=== PATIENT | female | born 1985 | race Two or more races ===

== ENCOUNTER 2017-09-13 11:39 | Inpatient (IN) | payer MEDICAID ==
[~2017-09-13] VITALS: Ht 165.1 cm; Wt 59.0 kg
[2017-09-13 11:50] VITALS: BP 11/73
[2017-09-13] MEDS ORDERED: Morphine Sulfate 2mg/ml Inj IVP ONE ×2 (12:15→13:30)
[2017-09-13 12:16] LABS: APPEARANCE,URINE CLEAR; KETONES,URINE 3+ (NEGATIVE); LEUKOCYTE ESTERASE ,URINE NEGATIVE (NEGATIVE); NITRITE,URINE NEGATIVE (NEGATIVE); PH,URINE 8 (4.5-8.0); PROTEIN,URINE NEGATIVE (NEGATIVE); UROBILINOGEN,URINE NORMAL MG/DL (0.0-1.0)
[2017-09-13 12:33] LABS: MEAN CORPUSCULAR HEMOGLOBIN 32.1 PG (27.0-31.0); MEAN CORPUSCULAR HGB CONC 33.7 G/DL (32.0-36.0); MEAN CORPUSCULAR VOLUME 95 FL (80-99); MEAN PLATELET VOLUME 6.8 FL (6.5-10.1); PLATELET COUNT 246 K/UL (150-450); RED BLOOD COUNT 3.96 M/UL (4.20-5.40); RED CELL DISTRIBUTION WIDTH 11.6 % (11.6-14.8); WHITE BLOOD COUNT 15.1 K/UL (4.8-10.8)
[2017-09-13 12:58] LABS: ALANINE AMINOTRANSFERASE 14 U/L (12-78); ALBUMIN/GLOBULIN RATIO 1.1 (1.0-2.7); ANION GAP 14 mmol/L (5-15); ASPARTATE AMINO TRANSFERASE 14 U/L (15-37); CALCIUM 9.3 MG/DL (8.5-10.1); CARBON DIOXIDE 22 MMOL/L (21-32); CHLORIDE 100 MMOL/L (98-107); CREATININE 0.9 MG/DL (0.55-1.30); GLOMERULAR FILTRATION RATE > 60 mL/min (>60); POTASSIUM 3.3 MMOL/L (3.5-5.1); SODIUM 136 MMOL/L (136-145); TOTAL PROTEIN 7.8 G/DL (6.4-8.2)
[2017-09-13 13:16] LABS: BAND NEUTROPHILS % (MANUAL) 0 % (0-8); BASOPHILS % (MANUAL) 0 % (0-2); EOSINOPHILS % (MANUAL) 0 % (0-3); LYMPHOCYTES % (MANUAL) 3 % (20-45); NEUTROPHILS % (MANUAL) 94 % (45-75); PLATELET ESTIMATE ADEQUATE; PLATELET MORPHOLOGY NORMAL; TOTAL CELLS COUNTED 100
[2017-09-13] MEDS ORDERED: Ketorolac 30mg Inj IV ONE (13:30)
[2017-09-13] MEDS ORDERED: Levofloxacin 500mg tab ORAL ONE (13:45)
--- NOTE | 2017-09-13 14:31 | Emergency Room Report ---
History of Present Illness General Chief Complaint: Abdominal Pain Source: Patient (Viviane Albert M.D.) Present Illness HPI 31-year-old female history of pyelonephritis presenting with 2 days of right- sided flank pain. Sharp, intermittent, associated with nausea no vomiting. Associate with seizure fever and chills. No dysuria or hematuria No renal stones Monogamous with one partner, no abnormal vaginal discharge, noticed. Anemia, no abnormal vaginal bleeding (Viviane Albert M.D.) Allergies: Coded Allergies: CEPHALEXIN (Verified Allergy, Mild, 09/13/17) Patient History Past Medical History: see triage record Past Surgical History: none Pertinent Family History: none Last Menstrual Period: 09/05/17 Reviewed Nursing Documentation: PMH: Agreed, PSxH: Agreed (Viviane Albert M.D. ) Nursing Documentation-PMH Past Medical History: No Stated History (Viviane Albert M.D.) Review of Systems All Other Systems: negative except mentioned in HPI (Viviane Albert M.D.) Physical Exam Vital Signs Date Time Temp Pulse Resp B/P (MAP) Pulse Ox O2 Delivery O2 Flow Rate FiO2 09/13/17 11:46 102.7 106 18 11/73 99 Room Air (Viviane Albert M.D.) Medical Decision Making Diagnostic Impression: Primary Impression: Pyelonephritis Additional Impression: Intractable pain ER Course 31-year-old female with right-sided flank pain DDX: nephrolithiasis VS infected stone vs. pyelonephritis vs. UTI Plan: Labs - cbc, bmp, ua, ucx CT abdo pelvis ER course: Patient has been monitored during ED stay, HD stable Patient has required multiple rounds of pain medication CT of the pelvis showing focal right-sided nephritis Levaquin given as patient is allergic to cephalosporins Disposition: Patient is to be admitted to [facility] D/W hospitalist Patient was signed out to Dr Gamble, who has accepted patient for admission. Please note that this Emergency Department Report was dictated using [employer] technology software, occasionally this can lead to erroneous entry secondary to interpretation by the dictation equipment. Laboratory Tests Test 09/13/17 11:45 09/13/17 12:12 09/13/17 19:35 09/14/17 06:57 Urine Color Pale yellow Pale yellow Urine Appearance Clear Clear Urine pH 8 (4.5-8.0) 8 (4.5-8.0) Urine Specific [place] 1.010 (1.005-1.035) 1.010 (1.005-1.035) Urine Protein Negative (NEGATIVE) Negative (NEGATIVE) Urine Glucose (UA) Negative (NEGATIVE) Negative (NEGATIVE) Urine Ketones 3+ (NEGATIVE) H 3+ (NEGATIVE) H Urine Occult Blood Negative (NEGATIVE) 2+ (NEGATIVE) H Urine Nitrite Negative (NEGATIVE) Negative (NEGATIVE) Urine Bilirubin Negative (NEGATIVE) Negative (NEGATIVE) Urine Urobilinogen Normal MG/DL (0.0-1.0) Normal MG/DL (0.0-1.0) Urine Leukocyte Esterase Negative (NEGATIVE) 3+ (NEGATIVE) H Urine HCG, Qualitative Negative White Blood Count 15.1 K/UL (4.8-10.8) H 14.7 K/UL (4.8-10.8) H Red Blood Count 3.96 M/UL (4.20-5.40) L 3.52 M/UL (4.20-5.40) L Hemoglobin 12.7 G/DL (12.0-16.0) 11.8 G/DL (12.0-16.0) L Hematocrit 37.8 % (37.0-47.0) 33.8 % (37.0-47.0) L Mean Corpuscular Volume 95 FL (80-99) 96 FL (80-99) Mean Corpuscular Hemoglobin 32.1 PG (27.0-31.0) H 33.4 PG (27.0-31.0) H Mean Corpuscular Hemoglobin Concent 33.7 G/DL (32.0-36.0) 34.8 G/DL (32.0-36.0) Red Cell Distribution Width 11.6 % (11.6-14.8) 11.6 % (11.6-14.8) Platelet Count 246 K/UL (150-450) 190 K/UL (150-450) Mean Platelet Volume 6.8 FL (6.5-10.1) 7.2 FL (6.5-10.1) Neutrophils (%) (Auto) % (45.0-75.0) % (45.0-75.0) Lymphocytes (%) (Auto) % (20.0-45.0) % (20.0-45.0) Monocytes (%) (Auto) % (1.0-10.0) % (1.0-10.0) Eosinophils (%) (Auto) % (0.0-3.0) % (0.0-3.0) Basophils (%) (Auto) % (0.0-2.0) % (0.0-2.0) Differential Total Cells Counted 100 100 Neutrophils % (Manual) 94 % (45-75) H 90 % (45-75) H Lymphocytes % (Manual) 3 % (20-45) L 7 % (20-45) L Monocytes % (Manual) 3 % (1-10) 3 % (1-10) Eosinophils % (Manual) 0 % (0-3) 0 % (0-3) Basophils % (Manual) 0 % (0-2) 0 % (0-2) Band Neutrophils 0 % (0-8) 0 % (0-8) Platelet Estimate Adequate Adequate Platelet Morphology Normal Normal Red Blood Cell Morphology Normal Normal Sodium Level 136 MMOL/L (136-145) 139 MMOL/L (136-145) Potassium Level 3.3 MMOL/L (3.5-5.1) L 2.8 MMOL/L (3.5-5.1) L Chloride Level 100 MMOL/L (98-107) 105 MMOL/L (98-107) Carbon Dioxide Level 22 MMOL/L (21-32) 22 MMOL/L (21-32) Anion Gap 14 mmol/L (5-15) 12 mmol/L (5-15) Blood Urea Nitrogen 6 mg/dL (7-18) L 3 mg/dL (7-18) L Creatinine 0.9 MG/DL (0.55-1.30) 0.8 MG/DL (0.55-1.30) Estimate Glomerular Filtration Rate > 60 mL/min (>60) > 60 mL/min (>60) Glucose Level 106 MG/DL (74-106) 135 MG/DL (74-106) H Lactic Acid Level 1.40 mmol/L (0.66-2.22) Calcium Level 9.3 MG/DL (8.5-10.1) 8.5 MG/DL (8.5-10.1) Total Bilirubin 0.8 MG/DL (0.2-1.0) 0.4 MG/DL (0.2-1.0) Aspartate Amino Transferase (AST) 14 U/L (15-37) L 17 U/L (15-37) Alanine Aminotransferase (ALT) 14 U/L (12-78) 14 U/L (12-78) Alkaline Phosphatase 62 U/L (46-116) 45 U/L (46-116) L Total Protein 7.8 G/DL (6.4-8.2) 6.7 G/DL (6.4-8.2) Albumin 4.0 G/DL (3.4-5.0) 3.1 G/DL (3.4-5.0) L Globulin 3.8 g/dL 3.6 g/dL Albumin/Globulin Ratio 1.1 (1.0-2.7) 0.9 (1.0-2.7) L Urine RBC 2-4 /HPF (0 - 2) H Urine WBC 5-10 /HPF (0 - 2) H Urine Squamous Epithelial Cells Few /LPF (NONE/OCC) Urine Bacteria Few /HPF (NONE) PTT 31 SEC (23-33) Amylase Level 35 U/L (25-115) Lipase 69 U/L (73-393) L (Viviane Albert M.D.) ER Course Received signout from Dr Albert at 230pm Patient refused to go upstairs until she "was told whats going on." States did not see Dr contreras discuss results I spent considerable time with patient discussing diagnosis of right nephritis Patient is tolerating PO but has intermittent nausea States nausea improves with IVF Is also concerned with being able to pay for admission - I verified with Admission office that patient has [employer] PPO, reassured patient Stable for transfer upstairs Was already endorsed to Dr Gamble by Dr Albert (STANFORD SALAS M.D.) CT/MRI/US Diagnostic Results CT/MRI/US Diagnostic Results : Imaging Test Ordered: CT abdo pelvis Impression Findings: Scattered focal areas of low attenuation are seen within the right kidney. One of these is located in the anterior interpolar region cortex, and a second in the posterior lateral interpolar region cortex, most likely areas of focal inflammation. Is a prominent renal pelvis, but no hydronephrosis. There is slight ectasia of the proximal right ureter and possible slight enhancement of the proximal ureteral wall. The left kidney is unremarkable. No renal or ureteral calculi, hydronephrosis, or hydroureter demonstrated. The gallbladder is mildly distended. No gallstones are evident. The liver, bile ducts, pancreas, spleen, adrenals are unremarkable. No retroperitoneal or mesenteric mass or adenopathy. No pelvic mass or adenopathy. Only a small portion of the appendix is visible, visualized portion appears unremarkable. No evidence of acute appendicitis is demonstrated. No evidence of diverticulosis or diverticulitis. No small bowel distention. No free or loculated intraperitoneal air or fluid is evident. The included lung bases are clear. The bones are unremarkable. Impression: Focal areas of low attenuation within the right kidney. Given stated clinical history, likely represent areas of focal nephritis. Infiltrative neoplasm as etiology of this finding also possible but much less likely. Correlate with clinical and laboratory findings. Mild ectasia of the renal pelvis and proximal ureter as well as minimal enhancement of the proximal ureter may indicate a component of pyelitis/ureteritis as well No other acute or significant abnormality Findings discussed by phone with Dr. Albert in the emergency room (Per radiologist's report) (Viviane Albert M.D.) Last Vital Signs Date Time Temp Pulse Resp B/P (MAP) Pulse Ox O2 Delivery O2 Flow Rate FiO2 09/13/17 12:53 102.8 09/13/17 11:50 88 18 11/73 99 Room Air (Viviane Albert M.D.) Status: improved (STANFORD SALAS M.D.) Disposition: ADMITTED INPATIENT Condition: Serious Scripts Unable to Obtain Active Prescriptions or Reported Meds Referrals: NOT CHOSEN STEVIE/,REFERRING (PCP) Viviane Albert M.D. Sep 13, 2017 14:31 STANFORD SALAS M.D. Sep 13, 2017 16:46
--- NOTE | 2017-09-13 14:41 | Diagnostic Imaging Report ---
Clinical Indication: Right-sided flank length x1 day, nausea Technique: No oral contrast utilized, per emergency room physician request IV administration nonionic contrast. Venous phase spiral acquisition obtained through the abdomen and pelvis. Multiplanar reconstructions were generated. Total dose length product 674 mGycm. CTDIvol(s) 13 mGy. Dose reduction achieved using automated exposure control Comparison: None Findings: Scattered focal areas of low attenuation are seen within the right kidney. One of these is located in the anterior interpolar region cortex, and a second in the posterior lateral interpolar region cortex, most likely areas of focal inflammation. Is a prominent renal pelvis, but no hydronephrosis. There is slight ectasia of the proximal right ureter and possible slight enhancement of the proximal ureteral wall. The left kidney is unremarkable. No renal or ureteral calculi, hydronephrosis, or hydroureter demonstrated. The gallbladder is mildly distended. No gallstones are evident. The liver, bile ducts, pancreas, spleen, adrenals are unremarkable. No retroperitoneal or mesenteric mass or adenopathy. No pelvic mass or adenopathy. Only a small portion of the appendix is visible, visualized portion appears unremarkable. No evidence of acute appendicitis is demonstrated. No evidence of diverticulosis or diverticulitis. No small bowel distention. No free or loculated intraperitoneal air or fluid is evident. The included lung bases are clear. The bones are unremarkable. Impression: Focal areas of low attenuation within the right kidney. Given stated clinical history, likely represent areas of focal nephritis. Infiltrative neoplasm as etiology of this finding also possible but much less likely. Correlate with clinical and laboratory findings. Mild ectasia of the renal pelvis and proximal ureter as well as minimal enhancement of the proximal ureter may indicate a component of pyelitis/ureteritis as well No other acute or significant abnormality Findings discussed by phone with Dr. Albert in the emergency room The CT scanner at [facility] is accredited by the [employer] and the scans are performed using protocols designed to limit radiation exposure to as low as reasonably achievable to attain images of sufficient resolution adequate for diagnostic evaluation.
[2017-09-13] MEDS ORDERED: Morphine Sulfate 4mg/ml Inj IV PRN (15:30)
[2017-09-13] MEDS ORDERED: Mylanta II UD 30ml ORAL PRN (15:30)
[2017-09-13] MEDS ORDERED: Nitroglycerin Subl 0.4mg tab SL PRN (15:30)
[2017-09-13] MEDS ORDERED: Miralax 17gm pkt ORAL PRN (15:30)
[2017-09-13] MEDS: D5 1/2NS 1,000 ML IV SCH (16:44)
[2017-09-13 16:48] VITALS: BP 128/70
[2017-09-13] MEDS: Aztreonam Inj 1 GM in NS 50 ML IVPB SCH ×2 (17:40→23:12)
[2017-09-13 20:00] VITALS: BP 110/58
[2017-09-13] MEDS: Heparin 5000 units/ml inj SUBQ SCH (20:57)
[2017-09-13 21:35] LABS: APPEARANCE,URINE CLEAR; KETONES,URINE 3+ (NEGATIVE); LEUKOCYTE ESTERASE ,URINE 3+ (NEGATIVE); NITRITE,URINE NEGATIVE (NEGATIVE); PH,URINE 8 (4.5-8.0); PROTEIN,URINE NEGATIVE (NEGATIVE); UROBILINOGEN,URINE NORMAL MG/DL (0.0-1.0)
[2017-09-13 21:45] LABS: BACTERIA,URINE FEW /HPF; SQUAMOUS EPITHELIAL CELL,UR FEW /LPF (NONE/OCC)
[2017-09-14] VITALS: BP 106/55
[2017-09-14] MEDS: D5 1/2NS 1,000 ML IV SCH ×2 (03:42→18:53)
[2017-09-14 04:00] VITALS: BP 109/65
[2017-09-14] MEDS ORDERED: Vancomycin 1gm in Dextrose 275ml IVPB ONE (08:00)
[2017-09-14 08:15] VITALS: BP 96/53
[2017-09-14 08:20] LABS: MEAN CORPUSCULAR HEMOGLOBIN 33.4 PG (27.0-31.0); MEAN CORPUSCULAR HGB CONC 34.8 G/DL (32.0-36.0); MEAN CORPUSCULAR VOLUME 96 FL (80-99); MEAN PLATELET VOLUME 7.2 FL (6.5-10.1); PLATELET COUNT 190 K/UL (150-450); RED BLOOD COUNT 3.52 M/UL (4.20-5.40); RED CELL DISTRIBUTION WIDTH 11.6 % (11.6-14.8); WHITE BLOOD COUNT 14.7 K/UL (4.8-10.8)
[2017-09-14 08:42] LABS: ALANINE AMINOTRANSFERASE 14 U/L (12-78); ALBUMIN/GLOBULIN RATIO 0.9 (1.0-2.7); AMYLASE 35 U/L (25-115); ANION GAP 12 mmol/L (5-15); ASPARTATE AMINO TRANSFERASE 17 U/L (15-37); CALCIUM 8.5 MG/DL (8.5-10.1); CARBON DIOXIDE 22 MMOL/L (21-32); CHLORIDE 105 MMOL/L (98-107); CREATININE 0.8 MG/DL (0.55-1.30); GLOMERULAR FILTRATION RATE > 60 mL/min (>60); LIPASE 69 U/L (73-393); POTASSIUM 2.8 MMOL/L (3.5-5.1); SODIUM 139 MMOL/L (136-145); TOTAL PROTEIN 6.7 G/DL (6.4-8.2)
[2017-09-14 09:02] LABS: BAND NEUTROPHILS % (MANUAL) 0 % (0-8); BASOPHILS % (MANUAL) 0 % (0-2); EOSINOPHILS % (MANUAL) 0 % (0-3); LYMPHOCYTES % (MANUAL) 7 % (20-45); NEUTROPHILS % (MANUAL) 90 % (45-75); PLATELET ESTIMATE ADEQUATE; PLATELET MORPHOLOGY NORMAL; TOTAL CELLS COUNTED 100
[2017-09-14] MEDS: Aztreonam Inj 1 GM in NS 50 ML IVPB SCH ×2 (10:08→17:03)
[2017-09-14] MEDS: Heparin 5000 units/ml inj SUBQ SCH ×2 (10:09→20:07)
[2017-09-14 12:15] VITALS: BP 101/66
[2017-09-14] MEDS: Morphine Sulfate 2mg/ml Inj IVP PRN ×2 (13:28→17:21)
--- NOTE | 2017-09-14 14:55 | History and Physical ---
History of Present Illness General Date patient seen: Sep 13, 2017 Reason for Hospitalization: Abdominal Pain Present Illness HPI 31-year-old female history of pyelonephritis presenting with 2 days of right- sided flank pain. Sharp, intermittent, associated with nausea no vomiting. Associate with seizure fever and chills. No dysuria or hematuria. she is admitted for evaluation and treatment of sepsis. Allergies: Coded Allergies: CEPHALEXIN (Verified Allergy, Mild, 09/13/17) Medication History Unable to Obtain Active Prescriptions or Reported Meds Patient History Healthcare decision maker Resuscitation status Full Code Advanced Directive on File Past Medical/Surgical History Past Medical/Surgical History: (1) Pyelonephritis Review of Systems Constitutional: Reports: fever, malaise All Other Systems: negative except mentioned in HPI Physical Exam General Appearance: WD/WN, no apparent distress Lines, tubes and drains: peripheral, PICC HEENT: normocephalic, atraumatic Respiratory/Chest: chest wall non-tender, lungs clear Cardiovascular/Chest: normal peripheral pulses, normal rate Last 24 Hour Vital Signs Date Time Temp Pulse Resp B/P (MAP) Pulse Ox O2 Delivery O2 Flow Rate FiO2 09/14/17 13:58 101.6 09/14/17 12:29 101.6 09/14/17 12:15 101.5 94 22 101/66 97 Nasal Cannula 09/14/17 08:15 98.6 84 21 96/53 95 Room Air 09/14/17 04:00 102.5 120 21 109/65 97 Room Air 09/14/17 04:00 102.5 63 21 109/65 97 Room Air 09/14/17 00:00 100.4 63 20 106/55 97 Room Air 09/13/17 20:00 101.8 99 20 110/58 98 Room Air 09/13/17 16:48 102.6 109 19 128/70 99 Room Air 09/13/17 16:11 102.8 88 18 11/73 99 Room Air Laboratory Tests Test 09/13/17 19:35 09/14/17 06:57 Urine Color Pale yellow Urine Appearance Clear Urine pH 8 (4.5-8.0) Urine Specific [place] 1.010 (1.005-1.035) Urine Protein Negative (NEGATIVE) Urine Glucose (UA) Negative (NEGATIVE) Urine Ketones 3+ (NEGATIVE) H Urine Occult Blood 2+ (NEGATIVE) H Urine Nitrite Negative (NEGATIVE) Urine Bilirubin Negative (NEGATIVE) Urine Urobilinogen Normal MG/DL (0.0-1.0) Urine Leukocyte Esterase 3+ (NEGATIVE) H Urine RBC 2-4 /HPF (0 - 2) H Urine WBC 5-10 /HPF (0 - 2) H Urine Squamous Epithelial Cells Few /LPF (NONE/OCC) Urine Bacteria Few /HPF (NONE) White Blood Count 14.7 K/UL (4.8-10.8) H Red Blood Count 3.52 M/UL (4.20-5.40) L Hemoglobin 11.8 G/DL (12.0-16.0) L Hematocrit 33.8 % (37.0-47.0) L Mean Corpuscular Volume 96 FL (80-99) Mean Corpuscular Hemoglobin 33.4 PG (27.0-31.0) H Mean Corpuscular Hemoglobin Concent 34.8 G/DL (32.0-36.0) Red Cell Distribution Width 11.6 % (11.6-14.8) Platelet Count 190 K/UL (150-450) Mean Platelet Volume 7.2 FL (6.5-10.1) Neutrophils (%) (Auto) % (45.0-75.0) Lymphocytes (%) (Auto) % (20.0-45.0) Monocytes (%) (Auto) % (1.0-10.0) Eosinophils (%) (Auto) % (0.0-3.0) Basophils (%) (Auto) % (0.0-2.0) Differential Total Cells Counted 100 Neutrophils % (Manual) 90 % (45-75) H Lymphocytes % (Manual) 7 % (20-45) L Monocytes % (Manual) 3 % (1-10) Eosinophils % (Manual) 0 % (0-3) Basophils % (Manual) 0 % (0-2) Band Neutrophils 0 % (0-8) Platelet Estimate Adequate Platelet Morphology Normal Red Blood Cell Morphology Normal Activated Partial Thromboplast Time 31 SEC (23-33) Sodium Level 139 MMOL/L (136-145) Potassium Level 2.8 MMOL/L (3.5-5.1) L Chloride Level 105 MMOL/L (98-107) Carbon Dioxide Level 22 MMOL/L (21-32) Anion Gap 12 mmol/L (5-15) Blood Urea Nitrogen 3 mg/dL (7-18) L Creatinine 0.8 MG/DL (0.55-1.30) Estimat Glomerular Filtration Rate > 60 mL/min (>60) Glucose Level 135 MG/DL (74-106) H Calcium Level 8.5 MG/DL (8.5-10.1) Total Bilirubin 0.4 MG/DL (0.2-1.0) Aspartate Amino Transf (AST/SGOT) 17 U/L (15-37) Alanine Aminotransferase (ALT/SGPT) 14 U/L (12-78) Alkaline Phosphatase 45 U/L (46-116) L Total Protein 6.7 G/DL (6.4-8.2) Albumin 3.1 G/DL (3.4-5.0) L Globulin 3.6 g/dL Albumin/Globulin Ratio 0.9 (1.0-2.7) L Amylase Level 35 U/L (25-115) Lipase 69 U/L (73-393) L Height (Feet): 5 Height (Inches): 5.00 Weight (Pounds): 130 Medications Current Medications Medications (Trade) Dose Ordered Sig/Shi Route PRN Reason Start Time Stop Time Status Last Admin Dose Admin Acetaminophen (Tylenol) 650 mg Q4H PRN ORAL fever 09/13/17 15:30 10/13/17 15:29 09/14/17 11:30 Al Hydroxide/Mg Hydroxide (Mylanta II) 30 ml Q6H PRN ORAL dyspepsia 09/13/17 15:30 10/13/17 15:29 Aztreonam 1 gm/ Sodium Chloride 50 ml @ 100 mls/hr Q8H IVPB 09/14/17 09:00 09/21/17 08:59 09/14/17 10:08 Dextrose (Dextrose 50%) STAT PRN IV Hypoglycemia 09/13/17 15:30 10/13/17 15:29 Dextrose/Sodium Chloride 1,000 ml @ 75 mls/hr [id number] IV 09/13/17 16:00 10/13/17 15:59 09/14/17 03:42 Diphenhydramine HCl (Benadryl) 25 mg Q6H PRN ORAL Itching/Pruritis 09/13/17 15:30 10/13/17 15:29 Heparin Sodium (Porcine) (Heparin 5000 units/ml) 5,000 units EVERY 12 HOURS SUBQ 09/13/17 21:00 10/13/17 20:59 09/14/17 10:09 Morphine Sulfate (Morphine Sulfate) 2 mg Q4H PRN IVP Moderate Pain (Pain Scale 4-6) 09/13/17 15:30 09/20/17 15:29 09/14/17 13:28 Morphine Sulfate (Morphine Sulfate) 4 mg Q2H PRN IV For Pain (7-10) 09/13/17 15:30 09/20/17 15:29 Nitroglycerin (Ntg) 0.4 mg Q5M X 3 DOSES PRN SL Prn Chest Pain 09/13/17 15:30 10/13/17 15:29 Ondansetron HCl (Zofran) 4 mg Q6H PRN IVP Nausea & Vomiting 09/13/17 15:30 10/13/17 15:29 Polyethylene Glycol (Miralax) 17 gm HSPRN PRN ORAL Constipation 09/13/17 15:30 10/13/17 15:29 Temazepam (Restoril) 15 mg HSPRN PRN ORAL Insomnia 09/13/17 15:30 09/20/17 15:29 09/14/17 00:18 Vancomycin HCl (Vanco rx to dose) 1 ea DAILY PRN MISC PER RX PROTOCOL 09/14/17 09:00 10/14/17 08:59 Vancomycin HCl 1 gm/Dextrose 275 ml @ 183.708 mls/hr Q8H IVPB 09/14/17 16:00 09/19/17 15:59 Assessment/Plan Problem List: (1) Sepsis ICD Codes: A41.9 - Sepsis, unspecified organism SNOMED: 21949385 (2) Pyelonephritis ICD Codes: N12 - Tubulo-interstitial nephritis, not specified as acute or chronic SNOMED: 40005842 (3) Intractable pain ICD Codes: R52 - Pain, unspecified SNOMED: 42540617 Assessment/Plan peralta cultures IV abx ID and urology evaluatin ELIEZER VENEGAS Sep 14, 2017 14:55
--- NOTE | 2017-09-14 15:06 | Pulmonology Progress Note ---
Assessment/Plan Problems: (1) Sepsis (2) Pyelonephritis (3) Intractable pain Assessment/Plan cultures pending CT reviewed check electrolytes and wbc awaiting ID consult Subjective ROS Limited/Unobtainable: No Interval Events: slightly better Allergies: Coded Allergies: CEPHALEXIN (Verified Allergy, Mild, 09/13/17) Objective Last 24 Hour Vital Signs Date Time Temp Pulse Resp B/P (MAP) Pulse Ox O2 Delivery O2 Flow Rate FiO2 09/14/17 13:58 101.6 09/14/17 12:29 101.6 09/14/17 12:15 101.5 94 22 101/66 97 Nasal Cannula 09/14/17 08:15 98.6 84 21 96/53 95 Room Air 09/14/17 04:00 102.5 120 21 109/65 97 Room Air 09/14/17 04:00 102.5 63 21 109/65 97 Room Air 09/14/17 00:00 100.4 63 20 106/55 97 Room Air 09/13/17 20:00 101.8 99 20 110/58 98 Room Air 09/13/17 16:48 102.6 109 19 128/70 99 Room Air 09/13/17 16:11 102.8 88 18 11/73 99 Room Air General Appearance: WD/WN HEENT: normocephalic, atraumatic Respiratory/Chest: chest wall non-tender, lungs clear Breasts: no masses Cardiovascular: normal peripheral pulses Abdomen: soft, non tender, no organomegaly Genitourinary: normal external genitalia Extremities: no cyanosis Skin: no rash, no lesions Laboratory Tests 09/13/17 19:35: Urine Color Pale yellow, Urine Appearance Clear, Urine pH 8, Urine Specific [place] 1.010, Urine Protein Negative, Urine Glucose (UA) Negative, Urine Ketones 3+H, Urine Occult Blood 2+H, Urine Nitrite Negative, Urine Bilirubin Negative, Urine Urobilinogen Normal, Urine Leukocyte Esterase 3+H, Urine RBC 2- 4H, Urine WBC 5-10H, Urine Squamous Epithelial Cells Few, Urine Bacteria Few 09/14/17 06:57: White Blood Count 14.7H, Red Blood Count 3.52L, Hemoglobin 11.8L, Hematocrit 33.8L, Mean Corpuscular Volume 96, Mean Corpuscular Hemoglobin 33.4H, Mean Corpuscular Hemoglobin Concent 34.8, Red Cell Distribution Width 11.6, Platelet Count 190, Mean Platelet Volume 7.2, Neutrophils (%) (Auto) , Lymphocytes (%) ( Auto) , Monocytes (%) (Auto) , Eosinophils (%) (Auto) , Basophils (%) (Auto) , Differential Total Cells Counted 100, Neutrophils % (Manual) 90H, Lymphocytes % (Manual) 7L, Monocytes % (Manual) 3, Eosinophils % (Manual) 0, Basophils % ( Manual) 0, Band Neutrophils 0, Platelet Estimate Adequate, Platelet Morphology Normal, Red Blood Cell Morphology Normal, Activated Partial Thromboplast Time 31 , Sodium Level 139, Potassium Level 2.8L, Chloride Level 105, Carbon Dioxide Level 22, Anion Gap 12, Blood Urea Nitrogen 3L, Creatinine 0.8, Estimat Glomerular Filtration Rate > 60, Glucose Level 135H, Calcium Level 8.5, Total Bilirubin 0.4, Aspartate Amino Transf (AST/SGOT) 17, Alanine Aminotransferase ( ALT/SGPT) 14, Alkaline Phosphatase 45L, Total Protein 6.7, Albumin 3.1L, Globulin 3.6, Albumin/Globulin Ratio 0.9L, Amylase Level 35, Lipase 69L Current Medications Medications (Trade) Dose Ordered Sig/Shi Route PRN Reason Start Time Stop Time Status Last Admin Dose Admin Acetaminophen (Tylenol) 650 mg Q4H PRN ORAL fever 09/13/17 15:30 10/13/17 15:29 09/14/17 11:30 Al Hydroxide/Mg Hydroxide (Mylanta II) 30 ml Q6H PRN ORAL dyspepsia 09/13/17 15:30 10/13/17 15:29 Aztreonam 1 gm/ Sodium Chloride 50 ml @ 100 mls/hr Q8H IVPB 09/14/17 09:00 09/21/17 08:59 09/14/17 10:08 Dextrose (Dextrose 50%) STAT PRN IV Hypoglycemia 09/13/17 15:30 10/13/17 15:29 Dextrose/Sodium Chloride 1,000 ml @ 75 mls/hr [id number] IV 09/13/17 16:00 10/13/17 15:59 09/14/17 03:42 Diphenhydramine HCl (Benadryl) 25 mg Q6H PRN ORAL Itching/Pruritis 09/13/17 15:30 10/13/17 15:29 Heparin Sodium (Porcine) (Heparin 5000 units/ml) 5,000 units EVERY 12 HOURS SUBQ 09/13/17 21:00 10/13/17 20:59 09/14/17 10:09 Morphine Sulfate (Morphine Sulfate) 2 mg Q4H PRN IVP Moderate Pain (Pain Scale 4-6) 09/13/17 15:30 09/20/17 15:29 09/14/17 13:28 Morphine Sulfate (Morphine Sulfate) 4 mg Q2H PRN IV For Pain (7-10) 09/13/17 15:30 09/20/17 15:29 Nitroglycerin (Ntg) 0.4 mg Q5M X 3 DOSES PRN SL Prn Chest Pain 09/13/17 15:30 10/13/17 15:29 Ondansetron HCl (Zofran) 4 mg Q6H PRN IVP Nausea & Vomiting 09/13/17 15:30 10/13/17 15:29 Polyethylene Glycol (Miralax) 17 gm HSPRN PRN ORAL Constipation 09/13/17 15:30 10/13/17 15:29 Temazepam (Restoril) 15 mg HSPRN PRN ORAL Insomnia 09/13/17 15:30 09/20/17 15:29 09/14/17 00:18 Vancomycin HCl (Vanco rx to dose) 1 ea DAILY PRN MISC PER RX PROTOCOL 09/14/17 09:00 10/14/17 08:59 Vancomycin HCl 1 gm/Dextrose 275 ml @ 183.708 mls/hr Q8H IVPB 09/14/17 16:00 09/19/17 15:59 ELIEZER VENEGAS Sep 14, 2017 15:06
[2017-09-14] MEDS: Vancomycin 1gm in Dextrose 275ml IVPB SCH ×2 (15:09→23:05)
[2017-09-14 15:45] VITALS: BP 99/57
[2017-09-14] MEDS ORDERED: Potassium Chloride 60 MEQ in NS 1000ml 1,000 ML IV ONE ×2 (19:30→21:31)
[2017-09-14 20:12] VITALS: BP 107/68
--- NOTE | 2017-09-14 21:00 | Consultation ---
DATE OF CONSULTATION: 09/14/2017 UROLOGY CONSULTATION CONSULTING PHYSICIAN: Daron Clay M.D. ATTENDING/CONSULTING PHYSICIAN: Satish Gamble M.D. CHIEF COMPLAINT/HISTORY OF PRESENT ILLNESS: I was asked by Dr. Gamble to evaluate this pleasant 31-year-old female regarding a history of recurrent right pyelonephritis. Briefly, the patient reports a lifelong history of urinary tract infections including previous episodes of pyelonephritis. She presented to the hospital with a 2-day history of right-sided abdominal flank pain. This is associated with nausea. She was noted to have some fevers and workup with urinalysis revealed evidence of urinary tract infection. A CT scan revealed evidence of right-sided pyelonephritis. She is admitted to the hospital for management of the same. PAST MEDICAL HISTORY: Urinary tract infection/pyelonephritis, otherwise, unremarkable. PAST SURGICAL HISTORY: None. MEDICATIONS: Please see the chart for current medications and administration details. The patient is receiving Levaquin for antibiotic coverage. ALLERGIES: Cephalexin. SOCIAL HISTORY: Unremarkable for tobacco, alcohol, or drug use. FAMILY HISTORY: Noncontributory. REVIEW OF SYSTEMS: A 12-system review of systems was essentially unremarkable outside of what is described above. PHYSICAL EXAMINATION: GENERAL: The patient is a young female, awake, alert, oriented x4, pleasant in mild distress. VITAL SIGNS: T-max 100.0, T-current 100.8. Vital signs are stable except blood pressure 99/57. HEENT: NC/AT. EOMI. NECK: Supple. Full range of motion. Oropharynx is clear. CHEST: Within normal limits. ABDOMEN: Soft and nondistended. Tender to palpation in the right upper quadrant. EXTREMITIES: Warm and well perfused. No cyanosis, clubbing, or edema. NEUROLOGIC: Grossly nonfocal. LABORATORY DATA: White blood cell count 14.7, hematocrit 33.8, and platelets 190. PTT 31. Sodium 139, potassium 2.8, chloride 105, bicarbonate 22, BUN 3, creatinine 0.8, and glucose 135. Calcium 8.5. LFTs within normal limits. Urinalysis, specific gravity 1.010 and pH 8.0. Dip test notable for 3+ ketones, 2+ occult blood, and 3+ leukocyte esterase. Microanalysis with 5 to 10 white blood cells per high-power field, 2 to 4 red blood cells per high-power field, and few bacteria present. Urine was negative. Urine and blood cultures were pending. DIAGNOSTIC IMAGING: CT scan of the abdomen and pelvis reveals focal areas of low attenuation within the right kidney, likely representing focal nephritis. No other acute or significant abnormality is seen. ASSESSMENT AND PLAN: In summary, the patient is a 31-year-old female with a history of recurrent urinary tract infections and pyelonephritis. She presents with a 2-day history of right-sided abdominal and flank pain associated with fevers and nausea. Workup revealed evidence of urinary tract infection and right-sided pyelonephritis on CT scan. She was admitted to the hospital for management of the same. Physical exam is notable for afebrile patient with a temperature of 100.8 currently and right upper quadrant tenderness to palpation. Laboratory data is notable for evidence of urinary tract infection and elevated white blood cell count. Diagnostic imaging reveals findings as described above. I discussed these findings today with the patient at bedside. We can continue Levaquin and vancomycin as empiric coverage until her cultures return. Once we have culture results, antibiotics can be adjusted as necessary. The patient should remain in-house until she has been afebrile for 24 to 48 hours, at which point she can be discharged home on oral medication to encompass 10 to 14 days of total treatment. There is no need for surgical intervention in this patient or other urology measure. Thank you for allowing me to participate in the care of this nice lady. Please do not hesitate to contact me with any questions that you may further have regarding her care. I will be happy to see her with you as needed. Daron Clay M.D. DR: ZOIE JOB#: [id number] CC:
[2017-09-15 00:07] VITALS: BP 107/68
[2017-09-15] MEDS: Aztreonam Inj 1 GM in NS 50 ML IVPB SCH ×3 (00:46→17:42)
[2017-09-15 04:29] VITALS: BP 94/71
[2017-09-15 08:00] VITALS: BP 109/65
[2017-09-15 08:35] LABS: BASOPHILS % (AUTO) 0.3 % (0.0-2.0); EOSINOPHILS % (AUTO) 0.9 % (0.0-3.0); LYMPHOCYTES % (AUTO) 11.8 % (20.0-45.0); MEAN CORPUSCULAR HEMOGLOBIN 32.6 PG (27.0-31.0); MEAN CORPUSCULAR VOLUME 96 FL (80-99); MEAN PLATELET VOLUME 7.7 FL (6.5-10.1); MONOCYTES % (AUTO) 9.7 % (1.0-10.0); NEUTROPHILS % (AUTO) 77.2 % (45.0-75.0); PLATELET COUNT 174 K/UL (150-450); RED BLOOD COUNT 3.52 M/UL (4.20-5.40); RED CELL DISTRIBUTION WIDTH 11.8 % (11.6-14.8); WHITE BLOOD COUNT 10.6 K/UL (4.8-10.8)
[2017-09-15] MEDS: Vancomycin 1gm in Dextrose 275ml IVPB SCH (08:39)
[2017-09-15] MEDS: D5 1/2NS 1,000 ML IV SCH (08:40)
[2017-09-15 09:02] LABS: ALANINE AMINOTRANSFERASE 16 U/L (12-78); ALBUMIN/GLOBULIN RATIO 0.8 (1.0-2.7); ANION GAP 9 mmol/L (5-15); ASPARTATE AMINO TRANSFERASE 13 U/L (15-37); CALCIUM 8.5 MG/DL (8.5-10.1); CARBON DIOXIDE 24 MMOL/L (21-32); CHLORIDE 106 MMOL/L (98-107); CREATININE 0.6 MG/DL (0.55-1.30); GLOMERULAR FILTRATION RATE > 60 mL/min (>60); POTASSIUM 3.4 MMOL/L (3.5-5.1); SODIUM 139 MMOL/L (136-145); TOTAL PROTEIN 6.6 G/DL (6.4-8.2)
[2017-09-15] MEDS: Heparin 5000 units/ml inj SUBQ SCH ×2 (09:27→21:22)
--- NOTE | 2017-09-15 11:00 | Consultation ---
History of Present Illness General Date patient seen: Sep 15, 2017 Time patient seen: 10:59 Chief Complaint: Abdominal Pain Reason for Consultation: pyelonephritis Present Illness HPI 31 y/o F with hx of recurrent R pyelonephritis and UTIs presents to ED on 09/13 with 2 days of R side intermittent, sharp flank pain associated with nausea, seizure fever and chills Denies vomiting, dysuria, hematuria, hx of renal stones Monogamous with one partner, no abnormal vaginal discharge or bleeding u/a with mild pyuria and CT abd/p showed R pyelonephritis. Febrile up to 102.8. Luekocytosis to 15, now resolved. Bcx NTD. Started on IV vanco and Aztreonam. Allergies: Coded Allergies: CEPHALEXIN (Verified Allergy, Mild, 09/13/17) Medication History Unable to Obtain Active Prescriptions or Reported Meds Patient History Healthcare decision maker Resuscitation status Full Code Advanced Directive on File Patient History Narrative PMhx: as above SH: Unremarkable for tobacco, alcohol, or drug use. Fhx non contributory Review of Systems All Other Systems: negative except mentioned in HPI Physical Exam Physical Exam Narrative General Appearance: WD/WN, no apparent distress HEENT: normocephalic, atraumatic, no oral lesions Respiratory/Chest: chest wall non-tender, lungs clear Cardiovascular/Chest: normal peripheral pulses, normal rate, no murmurs Abd: +R flank TTP, BS+, S+D, ND; +R CVAT Ext: no edema Skin: no rashes Last 24 Hour Vital Signs Date Time Temp Pulse Resp B/P (MAP) Pulse Ox O2 Delivery O2 Flow Rate FiO2 09/15/17 09:36 99.6 09/15/17 08:00 100.9 98 22 109/65 97 Room Air 09/15/17 04:29 98.1 79 17 94/71 97 Room Air 09/15/17 00:07 98.2 89 18 107/68 98 Room Air 09/14/17 20:12 101.8 99 20 107/68 97 Room Air 09/14/17 17:51 100.8 09/14/17 17:17 102.0 09/14/17 15:45 98.2 93 19 99/57 99 Room Air 09/14/17 12:15 101.5 94 22 101/66 97 Nasal Cannula Laboratory Tests Test 09/15/17 07:20 White Blood Count 10.6 K/UL (4.8-10.8) Red Blood Count 3.52 M/UL (4.20-5.40) L Hemoglobin 11.5 G/DL (12.0-16.0) L Hematocrit 33.7 % (37.0-47.0) L Mean Corpuscular Volume 96 FL (80-99) Mean Corpuscular Hemoglobin 32.6 PG (27.0-31.0) H Mean Corpuscular Hemoglobin Concent 34.0 G/DL (32.0-36.0) Red Cell Distribution Width 11.8 % (11.6-14.8) Platelet Count 174 K/UL (150-450) Mean Platelet Volume 7.7 FL (6.5-10.1) Neutrophils (%) (Auto) 77.2 % (45.0-75.0) H Lymphocytes (%) (Auto) 11.8 % (20.0-45.0) L Monocytes (%) (Auto) 9.7 % (1.0-10.0) Eosinophils (%) (Auto) 0.9 % (0.0-3.0) Basophils (%) (Auto) 0.3 % (0.0-2.0) Sodium Level 139 MMOL/L (136-145) Potassium Level 3.4 MMOL/L (3.5-5.1) L Chloride Level 106 MMOL/L (98-107) Carbon Dioxide Level 24 MMOL/L (21-32) Anion Gap 9 mmol/L (5-15) Blood Urea Nitrogen 4 mg/dL (7-18) L Creatinine 0.6 MG/DL (0.55-1.30) Estimat Glomerular Filtration Rate > 60 mL/min (>60) Glucose Level 100 MG/DL (74-106) Calcium Level 8.5 MG/DL (8.5-10.1) Total Bilirubin 0.3 MG/DL (0.2-1.0) Aspartate Amino Transf (AST/SGOT) 13 U/L (15-37) L Alanine Aminotransferase (ALT/SGPT) 16 U/L (12-78) Alkaline Phosphatase 50 U/L (46-116) Total Protein 6.6 G/DL (6.4-8.2) Albumin 3.0 G/DL (3.4-5.0) L Globulin 3.6 g/dL Albumin/Globulin Ratio 0.8 (1.0-2.7) L Vancomycin Level Trough 8.5 ug/mL (5.0-12.0) reviewed Height (Feet): 5 Height (Inches): 5.00 Weight (Pounds): 130 Medications Current Medications Medications (Trade) Dose Ordered Sig/Shi Route PRN Reason Start Time Stop Time Status Last Admin Dose Admin Acetaminophen (Tylenol) 650 mg Q4H PRN ORAL fever 09/13/17 15:30 10/13/17 15:29 09/15/17 08:37 Al Hydroxide/Mg Hydroxide (Mylanta II) 30 ml Q6H PRN ORAL dyspepsia 09/13/17 15:30 10/13/17 15:29 Aztreonam 1 gm/ Sodium Chloride 50 ml @ 100 mls/hr Q8H IVPB 09/14/17 09:00 09/21/17 08:59 09/15/17 10:12 Dextrose (Dextrose 50%) STAT PRN IV Hypoglycemia 09/13/17 15:30 10/13/17 15:29 Dextrose/Sodium Chloride 1,000 ml @ 75 mls/hr [id number] IV 09/13/17 16:00 10/13/17 15:59 09/15/17 08:40 Diphenhydramine HCl (Benadryl) 25 mg Q6H PRN ORAL Itching/Pruritis 09/13/17 15:30 10/13/17 15:29 Heparin Sodium (Porcine) (Heparin 5000 units/ml) 5,000 units EVERY 12 HOURS SUBQ 09/13/17 21:00 10/13/17 20:59 09/15/17 09:27 Ibuprofen (Advil) 400 mg Q4H PRN ORAL Mild Pain/Temp > 100.5 09/14/17 16:15 10/14/17 16:14 09/14/17 16:18 Morphine Sulfate (Morphine Sulfate) 2 mg Q4H PRN IVP Moderate Pain (Pain Scale 4-6) 09/13/17 15:30 09/20/17 15:29 09/14/17 17:21 Morphine Sulfate (Morphine Sulfate) 4 mg Q2H PRN IV For Pain (7-10) 09/13/17 15:30 09/20/17 15:29 Nitroglycerin (Ntg) 0.4 mg Q5M X 3 DOSES PRN SL Prn Chest Pain 09/13/17 15:30 10/13/17 15:29 Ondansetron HCl (Zofran) 4 mg Q6H PRN IVP Nausea & Vomiting 09/13/17 15:30 10/13/17 15:29 Polyethylene Glycol (Miralax) 17 gm HSPRN PRN ORAL Constipation 09/13/17 15:30 10/13/17 15:29 Temazepam (Restoril) 15 mg HSPRN PRN ORAL Insomnia 09/13/17 15:30 09/20/17 15:29 09/14/17 23:30 Vancomycin HCl (Vanco rx to dose) 1 ea DAILY PRN MISC PER RX PROTOCOL 09/14/17 09:00 10/14/17 08:59 Vancomycin HCl 1 gm/Dextrose 275 ml @ 183.708 mls/hr Q8H IVPB 09/14/17 16:00 09/19/17 15:59 09/15/17 08:39 Assessment/Plan Assessment/Plan Abx: IV Vancomycin 09/14- IV Aztreonam 09/14- Levaquin x1 09/13 Assesment: R pyelonephritis -u/a wbc 5-10,nit neg, leuk +3; ucx pending -CT abd/p w/: Focal areas of low attenuation within the right kidney. Given stated clinical history, likely represent areas of focal nephritis. Infiltrative neoplasm as etiology of this finding also possible but much less likely. Mild ectasia of the renal pelvis and proximal ureter as well as minimal enhancement of the proximal ureter may indicate a component of pyelitis/ ureteritis as well No other acute or significant abnormality Fever/leukocytosis- 2ry to above- leukocytosis resolved- r/o bacteremia -Bcx 09/14 NTD Hx of recurrent UTI and pyelonephritis Plan: -Continue IV Aztreonam #2 pending ucx -d/c IV Vancomycin #2 -f/u cx -Monitor CBC/BMP, temperatuers Thank you for this consultation. Will continue to follow along with you. Discussed with Haley Patino M.D. Sep 15, 2017 11:00
[2017-09-15 12:00] VITALS: BP 102/62
--- NOTE | 2017-09-15 15:19 | Pulmonology Progress Note ---
Assessment/Plan Problems: (1) Sepsis (2) Pyelonephritis (3) Intractable pain Assessment/Plan cultures pending CT reviewed check electrolytes and wbc ID consult and urology consult appreciated Subjective ROS Limited/Unobtainable: No Constitutional: Reports: no symptoms HEENT: Repors: no symptoms Respiratory: Reports: no symptoms Allergies: Coded Allergies: CEPHALEXIN (Verified Allergy, Mild, 09/13/17) Objective Last 24 Hour Vital Signs Date Time Temp Pulse Resp B/P (MAP) Pulse Ox O2 Delivery O2 Flow Rate FiO2 09/15/17 12:00 98.2 81 20 102/62 98 Room Air 09/15/17 09:36 99.6 09/15/17 08:00 100.9 98 22 109/65 97 Room Air 09/15/17 04:29 98.1 79 17 94/71 97 Room Air 09/15/17 00:07 98.2 89 18 107/68 98 Room Air 09/14/17 20:12 101.8 99 20 107/68 97 Room Air 09/14/17 17:51 100.8 09/14/17 17:17 102.0 09/14/17 15:45 98.2 93 19 99/57 99 Room Air Intake and Output 09/15/17 09/16/17 19:00 07:00 # Voids 1 General Appearance: WD/WN HEENT: normocephalic, mucous membranes moist Respiratory/Chest: chest wall non-tender, lungs clear Breasts: no masses Abdomen: normal bowel sounds, soft, non tender Genitourinary: normal external genitalia Extremities: no cyanosis Skin: no rash Microbiology Date/Time Source Procedure Growth Status 09/13/17 23:00 Blood Blood Culture - Preliminary NO GROWTH AFTER 24 HOURS Resulted 09/13/17 22:55 Blood Blood Culture - Preliminary NO GROWTH AFTER 24 HOURS Resulted 09/13/17 19:35 Straight Cath Urine Culture - Preliminary Resulted Laboratory Tests 09/15/17 07:20: White Blood Count 10.6, Red Blood Count 3.52L, Hemoglobin 11.5L, Hematocrit 33.7L, Mean Corpuscular Volume 96, Mean Corpuscular Hemoglobin 32.6H, Mean Corpuscular Hemoglobin Concent 34.0, Red Cell Distribution Width 11.8, Platelet Count 174, Mean Platelet Volume 7.7, Neutrophils (%) (Auto) 77.2H, Lymphocytes ( %) (Auto) 11.8L, Monocytes (%) (Auto) 9.7, Eosinophils (%) (Auto) 0.9, Basophils (%) (Auto) 0.3, Sodium Level 139, Potassium Level 3.4L, Chloride Level 106, Carbon Dioxide Level 24, Anion Gap 9, Blood Urea Nitrogen 4L, Creatinine 0.6, Estimat Glomerular Filtration Rate > 60, Glucose Level 100, Calcium Level 8.5, Total Bilirubin 0.3, Aspartate Amino Transf (AST/SGOT) 13L, Alanine Aminotransferase (ALT/SGPT) 16, Alkaline Phosphatase 50, Total Protein 6.6, Albumin 3.0L, Globulin 3.6, Albumin/Globulin Ratio 0.8L, Vancomycin Level Trough 8.5 Current Medications Medications (Trade) Dose Ordered Sig/Shi Route PRN Reason Start Time Stop Time Status Last Admin Dose Admin Acetaminophen (Tylenol) 650 mg Q4H PRN ORAL fever 09/13/17 15:30 10/13/17 15:29 09/15/17 08:37 Al Hydroxide/Mg Hydroxide (Mylanta II) 30 ml Q6H PRN ORAL dyspepsia 09/13/17 15:30 10/13/17 15:29 Aztreonam 1 gm/ Sodium Chloride 50 ml @ 100 mls/hr Q8H IVPB 09/14/17 09:00 09/21/17 08:59 09/15/17 10:12 Dextrose (Dextrose 50%) STAT PRN IV Hypoglycemia 09/13/17 15:30 10/13/17 15:29 Dextrose/Sodium Chloride 1,000 ml @ 75 mls/hr [id number] IV 09/13/17 16:00 10/13/17 15:59 09/15/17 08:40 Diphenhydramine HCl (Benadryl) 25 mg Q6H PRN ORAL Itching/Pruritis 09/13/17 15:30 10/13/17 15:29 Heparin Sodium (Porcine) (Heparin 5000 units/ml) 5,000 units EVERY 12 HOURS SUBQ 09/13/17 21:00 10/13/17 20:59 09/15/17 09:27 Ibuprofen (Advil) 400 mg Q4H PRN ORAL Mild Pain/Temp > 100.5 09/14/17 16:15 10/14/17 16:14 09/14/17 16:18 Morphine Sulfate (Morphine Sulfate) 2 mg Q4H PRN IVP Moderate Pain (Pain Scale 4-6) 09/13/17 15:30 09/20/17 15:29 09/14/17 17:21 Morphine Sulfate (Morphine Sulfate) 4 mg Q2H PRN IV For Pain (7-10) 09/13/17 15:30 09/20/17 15:29 Nitroglycerin (Ntg) 0.4 mg Q5M X 3 DOSES PRN SL Prn Chest Pain 09/13/17 15:30 10/13/17 15:29 Ondansetron HCl (Zofran) 4 mg Q6H PRN IVP Nausea & Vomiting 09/13/17 15:30 10/13/17 15:29 Polyethylene Glycol (Miralax) 17 gm HSPRN PRN ORAL Constipation 09/13/17 15:30 10/13/17 15:29 Temazepam (Restoril) 15 mg HSPRN PRN ORAL Insomnia 09/13/17 15:30 09/20/17 15:29 09/14/17 23:30 ELIEZER VENEGAS Sep 15, 2017 15:19
[2017-09-15 16:00] VITALS: BP 105/66
[2017-09-15] MEDS: Morphine Sulfate 2mg/ml Inj IVP PRN (16:11)
[2017-09-15 20:36] VITALS: BP 112/60
--- NOTE | 2017-09-15 22:15 | Progress Note ---
DATE: 09/15/2017 UROLOGY PROGRESS NOTE SUBJECTIVE: No events overnight. OBJECTIVE: VITAL SIGNS: T-max 101.7. Vital signs stable. ABDOMEN: Decreased tenderness to palpation. Right flank sprinkler tender. EXTREMITIES: Warm and well perfused. No cyanosis, clubbing, or edema. LABORATORY DATA: Microbiology, blood cultures negative. Urine culture pending. ASSESSMENT AND PLAN: 1. Urinary tract infection/right pyelonephritis. 2. Continue IV fluids and supportive care. 3. Continue IV antibiotics per Infectious Disease and adjust per culture results. 4. Okay for discharge from genitourinary standpoint when afebrile for 24 to 48 hours. Daron Clay M.D. DR: PEPPER JOB#: [id number] CC:
[2017-09-16] MEDS: D5 1/2NS 1,000 ML IV SCH ×2 (00:07→10:46)
[2017-09-16] MEDS: Aztreonam Inj 1 GM in NS 50 ML IVPB SCH ×3 (00:10→17:38)
[2017-09-16 00:17] VITALS: BP 110/66
[2017-09-16 04:00] VITALS: BP 117/68
[2017-09-16 06:56] LABS: BASOPHILS % (AUTO) 0.5 % (0.0-2.0); EOSINOPHILS % (AUTO) 0.6 % (0.0-3.0); LYMPHOCYTES % (AUTO) 23.7 % (20.0-45.0); MEAN CORPUSCULAR HEMOGLOBIN 32.6 PG (27.0-31.0); MEAN CORPUSCULAR VOLUME 96 FL (80-99); MEAN PLATELET VOLUME 7.5 FL (6.5-10.1); MONOCYTES % (AUTO) 11.5 % (1.0-10.0); NEUTROPHILS % (AUTO) 63.7 % (45.0-75.0); PLATELET COUNT 194 K/UL (150-450); RED BLOOD COUNT 3.11 M/UL (4.20-5.40); RED CELL DISTRIBUTION WIDTH 11.7 % (11.6-14.8); WHITE BLOOD COUNT 6.9 K/UL (4.8-10.8)
[2017-09-16 07:15] LABS: ALANINE AMINOTRANSFERASE 13 U/L (12-78); ALBUMIN/GLOBULIN RATIO 0.8 (1.0-2.7); ANION GAP 9 mmol/L (5-15); ASPARTATE AMINO TRANSFERASE 8 U/L (15-37); CALCIUM 8.6 MG/DL (8.5-10.1); CARBON DIOXIDE 24 MMOL/L (21-32); CHLORIDE 109 MMOL/L (98-107); CREATININE 0.6 MG/DL (0.55-1.30); GLOMERULAR FILTRATION RATE > 60 mL/min (>60); MAGNESIUM 1.9 MG/DL (1.8-2.4); PHOSPHORUS 3.1 MG/DL (2.5-4.9); POTASSIUM 3.5 MMOL/L (3.5-5.1); SODIUM 142 MMOL/L (136-145)
[2017-09-16 08:00] VITALS: BP 105/56
[2017-09-16 08:31] LABS: ERYTHROCYTE SEDIMENTATION RATE 80 MM/HR (0-20)
[2017-09-16] MEDS: Heparin 5000 units/ml inj SUBQ SCH ×2 (09:03→21:27)
--- NOTE | 2017-09-16 10:57 | Infectious Diseases Prog Note ---
Assessment/Plan Assessment/Plan Abx: IV Vancomycin 09/14-09/15 IV Aztreonam 09/14- Levaquin x1 09/13 Assesment: R pyelonephritis -u/a wbc 5-10,nit neg, leuk +3; ucx 40-50k C. albicans, >100K lactobacillus ( not causing pyelonephritis, colonizers) -Bcx NTD -CT abd/p w/: Focal areas of low attenuation within the right kidney. Given stated clinical history, likely represent areas of focal nephritis. Infiltrative neoplasm as etiology of this finding also possible but much less likely. Mild ectasia of the renal pelvis and proximal ureter as well as minimal enhancement of the proximal ureter may indicate a component of pyelitis/ ureteritis as well No other acute or significant abnormality Fever/leukocytosis- 2ry to above- leukocytosis resolved, fever improving- r/o bacteremia -Bcx 09/14 NTD Hx of recurrent UTI and pyelonephritis Plan: -Continue IV Aztreonam #3/ pending Bcx -No cx results to guide antibiotic treatment and patient with cephalosporin allergy. Once improved can transitioned to either PO Cipro or Bactrim upon discharge; keeping in mind these can fail and patient should be given strict return recommendations. Discussed with patient. Patient favors Cipro (she has used both abx as frequent) -s/p 2d IV Vancomycin 09/15 -Monitor inhouse for the next 24hrs -Consider post-coital abx prophylaxis with either 1 single dose of Bactrim DS or Nitrofurantoin 50-100mg given her hx of recurrent UTIs/pyelo -Discussed with patient about outpatient allergy evaluation to re-evaluate cephalosporin allergic reaction -f/u cx -Monitor CBC/BMP, temperatures Thank you for this consultation. Will continue to follow along with you. Discussed with RN. Subjective Allergies: Coded Allergies: CEPHALEXIN (Verified Allergy, Mild, 09/13/17) Subjective Fever curve improving, Tm 100.2 ucx + for Lila and lactobacillus leukocytosis resolved Bcx NTD pain improving Objective Vital Signs Last 24 Hour Vital Signs Date Time Temp Pulse Resp B/P (MAP) Pulse Ox O2 Delivery O2 Flow Rate FiO2 09/16/17 08:00 98.8 79 20 105/56 98 Room Air 09/16/17 04:00 97.8 80 20 117/68 98 Room Air 09/16/17 01:06 100.2 09/16/17 00:17 100.2 90 20 110/66 97 Room Air 09/15/17 20:36 99.5 101 19 112/60 96 Room Air 09/15/17 16:41 100.1 09/15/17 16:00 100.1 91 20 105/66 97 Room Air 09/15/17 12:00 98.2 81 20 102/62 98 Room Air Height (Feet): 5 Height (Inches): 5.00 Weight (Pounds): 130 Objective General Appearance: WD/WN, no apparent distress HEENT: normocephalic, atraumatic, no oral lesions Respiratory/Chest: chest wall non-tender, lungs clear Cardiovascular/Chest: normal peripheral pulses, normal rate, no murmurs Abd: +R flank TTP, BS+, S+D, ND; +R CVAT Ext: no edema Skin: no rashes Microbiology Date/Time Source Procedure Growth Status 09/13/17 23:00 Blood Blood Culture - Preliminary NO GROWTH AFTER 48 HOURS Resulted 09/13/17 22:55 Blood Blood Culture - Preliminary NO GROWTH AFTER 48 HOURS Resulted 09/13/17 19:35 Straight Cath Urine Culture - Final Lila Albicans Lactobacillus Species Complete Laboratory Tests Test 09/16/17 05:55 White Blood Count 6.9 K/UL (4.8-10.8) Red Blood Count 3.11 M/UL (4.20-5.40) L Hemoglobin 10.1 G/DL (12.0-16.0) L Hematocrit 29.8 % (37.0-47.0) L Mean Corpuscular Volume 96 FL (80-99) Mean Corpuscular Hemoglobin 32.6 PG (27.0-31.0) H Mean Corpuscular Hemoglobin Concent 34.0 G/DL (32.0-36.0) Red Cell Distribution Width 11.7 % (11.6-14.8) Platelet Count 194 K/UL (150-450) Mean Platelet Volume 7.5 FL (6.5-10.1) Neutrophils (%) (Auto) 63.7 % (45.0-75.0) Lymphocytes (%) (Auto) 23.7 % (20.0-45.0) Monocytes (%) (Auto) 11.5 % (1.0-10.0) H Eosinophils (%) (Auto) 0.6 % (0.0-3.0) Basophils (%) (Auto) 0.5 % (0.0-2.0) Erythrocyte Sedimentation Rate 80 MM/HR (0-20) H Sodium Level 142 MMOL/L (136-145) Potassium Level 3.5 MMOL/L (3.5-5.1) Chloride Level 109 MMOL/L (98-107) H Carbon Dioxide Level 24 MMOL/L (21-32) Anion Gap 9 mmol/L (5-15) Blood Urea Nitrogen 6 mg/dL (7-18) L Creatinine 0.6 MG/DL (0.55-1.30) Estimat Glomerular Filtration Rate > 60 mL/min (>60) Glucose Level 96 MG/DL (74-106) Calcium Level 8.6 MG/DL (8.5-10.1) Phosphorus Level 3.1 MG/DL (2.5-4.9) Magnesium Level 1.9 MG/DL (1.8-2.4) Total Bilirubin 0.2 MG/DL (0.2-1.0) Aspartate Amino Transf (AST/SGOT) 8 U/L (15-37) L Alanine Aminotransferase (ALT/SGPT) 13 U/L (12-78) Alkaline Phosphatase 54 U/L (46-116) C-Reactive Protein, Quantitative 11.0 mg/dL (0.00-0.90) H Total Protein 6.0 G/DL (6.4-8.2) L Albumin 2.6 G/DL (3.4-5.0) L Globulin 3.4 g/dL Albumin/Globulin Ratio 0.8 (1.0-2.7) L Current Medications Medications (Trade) Dose Ordered Sig/Shi Route PRN Reason Start Time Stop Time Status Last Admin Dose Admin Acetaminophen (Tylenol) 650 mg Q4H PRN ORAL fever 09/13/17 15:30 10/13/17 15:29 09/16/17 00:07 Al Hydroxide/Mg Hydroxide (Mylanta II) 30 ml Q6H PRN ORAL dyspepsia 09/13/17 15:30 10/13/17 15:29 Aztreonam 1 gm/ Sodium Chloride 50 ml @ 100 mls/hr Q8H IVPB 09/14/17 09:00 09/21/17 08:59 09/16/17 08:40 Dextrose (Dextrose 50%) STAT PRN IV Hypoglycemia 09/13/17 15:30 10/13/17 15:29 Dextrose/Sodium Chloride 1,000 ml @ 75 mls/hr [id number] IV 09/13/17 16:00 10/13/17 15:59 09/16/17 10:46 Diphenhydramine HCl (Benadryl) 25 mg Q6H PRN ORAL Itching/Pruritis 09/13/17 15:30 10/13/17 15:29 Heparin Sodium (Porcine) (Heparin 5000 units/ml) 5,000 units EVERY 12 HOURS SUBQ 09/13/17 21:00 10/13/17 20:59 09/16/17 09:03 Ibuprofen (Advil) 400 mg Q4H PRN ORAL Mild Pain/Temp > 100.5 09/14/17 16:15 10/14/17 16:14 09/16/17 10:45 Morphine Sulfate (Morphine Sulfate) 2 mg Q4H PRN IVP Moderate Pain (Pain Scale 4-6) 09/13/17 15:30 09/20/17 15:29 09/15/17 16:11 Morphine Sulfate (Morphine Sulfate) 4 mg Q2H PRN IV For Pain (7-10) 09/13/17 15:30 09/20/17 15:29 Nitroglycerin (Ntg) 0.4 mg Q5M X 3 DOSES PRN SL Prn Chest Pain 09/13/17 15:30 10/13/17 15:29 Ondansetron HCl (Zofran) 4 mg Q6H PRN IVP Nausea & Vomiting 09/13/17 15:30 10/13/17 15:29 Polyethylene Glycol (Miralax) 17 gm HSPRN PRN ORAL Constipation 09/13/17 15:30 10/13/17 15:29 Temazepam (Restoril) 15 mg HSPRN PRN ORAL Insomnia 09/13/17 15:30 09/20/17 15:29 09/16/17 00:07 Haley Cifuentes M.D. Sep 16, 2017 10:57
[2017-09-16 12:00] VITALS: BP 114/67
--- NOTE | 2017-09-16 15:24 | Pulmonology Progress Note ---
Assessment/Plan Problems: (1) Sepsis (2) Pyelonephritis (3) Intractable pain Assessment/Plan cultures pending CT reviewed check electrolytes and wbc low grade fever, once pt doesn't have a fever for 24 hours, will discharge home with abx that are ordered by ID Subjective ROS Limited/Unobtainable: No Constitutional: Reports: no symptoms HEENT: Repors: no symptoms Allergies: Coded Allergies: CEPHALEXIN (Verified Allergy, Mild, 09/13/17) Objective Last 24 Hour Vital Signs Date Time Temp Pulse Resp B/P (MAP) Pulse Ox O2 Delivery O2 Flow Rate FiO2 09/16/17 12:00 98.8 87 20 114/67 98 Room Air 09/16/17 11:44 98.8 09/16/17 08:00 98.8 79 20 105/56 98 Room Air 09/16/17 04:00 97.8 80 20 117/68 98 Room Air 09/16/17 01:06 100.2 09/16/17 00:17 100.2 90 20 110/66 97 Room Air 09/15/17 20:36 99.5 101 19 112/60 96 Room Air 09/15/17 16:41 100.1 09/15/17 16:00 100.1 91 20 105/66 97 Room Air Intake and Output 09/16/17 09/17/17 19:00 07:00 Intake Total 575.0 ml Balance 575.0 ml IV Total 575.0 ml # Bowel Movements 1 General Appearance: WD/WN, no acute distress HEENT: atraumatic, anicteric Respiratory/Chest: chest wall non-tender, lungs clear Cardiovascular: normal peripheral pulses, normal rate, regular rhythm Abdomen: normal bowel sounds, soft, non tender Extremities: no cyanosis Skin: no rash Microbiology Date/Time Source Procedure Growth Status 09/13/17 23:00 Blood Blood Culture - Preliminary NO GROWTH AFTER 48 HOURS Resulted 09/13/17 22:55 Blood Blood Culture - Preliminary NO GROWTH AFTER 48 HOURS Resulted 09/13/17 19:35 Straight Cath Urine Culture - Final Lila Albicans Lactobacillus Species Complete Laboratory Tests 09/16/17 05:55: White Blood Count 6.9, Red Blood Count 3.11L, Hemoglobin 10.1L, Hematocrit 29.8L , Mean Corpuscular Volume 96, Mean Corpuscular Hemoglobin 32.6H, Mean Corpuscular Hemoglobin Concent 34.0, Red Cell Distribution Width 11.7, Platelet Count 194, Mean Platelet Volume 7.5, Neutrophils (%) (Auto) 63.7, Lymphocytes (% ) (Auto) 23.7, Monocytes (%) (Auto) 11.5H, Eosinophils (%) (Auto) 0.6, Basophils (%) (Auto) 0.5, Erythrocyte Sedimentation Rate 80H, Sodium Level 142, Potassium Level 3.5, Chloride Level 109H, Carbon Dioxide Level 24, Anion Gap 9, Blood Urea Nitrogen 6L, Creatinine 0.6, Estimat Glomerular Filtration Rate > 60 , Glucose Level 96, Calcium Level 8.6, Phosphorus Level 3.1, Magnesium Level 1.9 , Total Bilirubin 0.2, Aspartate Amino Transf (AST/SGOT) 8L, Alanine Aminotransferase (ALT/SGPT) 13, Alkaline Phosphatase 54, C-Reactive Protein, Quantitative 11.0H, Total Protein 6.0L, Albumin 2.6L, Globulin 3.4, Albumin/ Globulin Ratio 0.8L Current Medications Medications (Trade) Dose Ordered Sig/Shi Route PRN Reason Start Time Stop Time Status Last Admin Dose Admin Acetaminophen (Tylenol) 650 mg Q4H PRN ORAL fever 09/13/17 15:30 10/13/17 15:29 09/16/17 00:07 Al Hydroxide/Mg Hydroxide (Mylanta II) 30 ml Q6H PRN ORAL dyspepsia 09/13/17 15:30 10/13/17 15:29 Aztreonam 1 gm/ Sodium Chloride 50 ml @ 100 mls/hr Q8H IVPB 09/14/17 09:00 09/21/17 08:59 09/16/17 08:40 Dextrose (Dextrose 50%) STAT PRN IV Hypoglycemia 09/13/17 15:30 10/13/17 15:29 Dextrose/Sodium Chloride 1,000 ml @ 75 mls/hr [id number] IV 09/13/17 16:00 10/13/17 15:59 09/16/17 10:46 Diphenhydramine HCl (Benadryl) 25 mg Q6H PRN ORAL Itching/Pruritis 09/13/17 15:30 10/13/17 15:29 Heparin Sodium (Porcine) (Heparin 5000 units/ml) 5,000 units EVERY 12 HOURS SUBQ 09/13/17 21:00 10/13/17 20:59 09/16/17 09:03 Ibuprofen (Advil) 400 mg Q4H PRN ORAL Mild Pain/Temp > 100.5 09/14/17 16:15 10/14/17 16:14 09/16/17 10:45 Morphine Sulfate (Morphine Sulfate) 2 mg Q4H PRN IVP Moderate Pain (Pain Scale 4-6) 09/13/17 15:30 09/20/17 15:29 09/15/17 16:11 Morphine Sulfate (Morphine Sulfate) 4 mg Q2H PRN IV For Pain (7-10) 09/13/17 15:30 09/20/17 15:29 Nitroglycerin (Ntg) 0.4 mg Q5M X 3 DOSES PRN SL Prn Chest Pain 09/13/17 15:30 10/13/17 15:29 Ondansetron HCl (Zofran) 4 mg Q6H PRN IVP Nausea & Vomiting 09/13/17 15:30 10/13/17 15:29 Polyethylene Glycol (Miralax) 17 gm HSPRN PRN ORAL Constipation 09/13/17 15:30 10/13/17 15:29 Temazepam (Restoril) 15 mg HSPRN PRN ORAL Insomnia 09/13/17 15:30 09/20/17 15:29 09/16/17 00:07 ELIEZER VENEGAS Sep 16, 2017 15:24
[2017-09-16 16:00] VITALS: BP 110/68
[2017-09-16] MEDS ORDERED: Morphine 5mg/2.5ml Oral Soln ORAL PRN ×2 (16:00)
--- NOTE | 2017-09-16 19:48 | Urology Progress Note ---
Assessment/Plan Status: stable Assessment/Plan WBC improved, CT reviewed. Focal pyelonephritis that seems to be resolving. Patient is feeling better but nervous about switching to PO. Can consider PO trial with Cipro tomorrow to see if there is any fever spikes on PO meds alone. Likely needs cystoscopy and further anatomical workup when no longer febrile. 1. f/u Dr. Clay in 1-2 weeks. Subjective Date patient seen: Sep 16, 2017 Time patient seen: 19:47 ROS Limited/Unobtainable: No Constitutional: Reports: weakness Allergies: Coded Allergies: CEPHALEXIN (Verified Allergy, Mild, 09/13/17) Subjective temp under control today, felt better overall. Objective Last 24 Hour Vital Signs Date Time Temp Pulse Resp B/P (MAP) Pulse Ox O2 Delivery O2 Flow Rate FiO2 09/16/17 16:00 99.1 82 20 110/68 100 Room Air 09/16/17 12:00 98.8 87 20 114/67 98 Room Air 09/16/17 11:44 98.8 09/16/17 08:00 98.8 79 20 105/56 98 Room Air 09/16/17 04:00 97.8 80 20 117/68 98 Room Air 09/16/17 01:06 100.2 09/16/17 00:17 100.2 90 20 110/66 97 Room Air 09/15/17 20:36 99.5 101 19 112/60 96 Room Air Intake and Output 09/16/17 09/17/17 19:00 07:00 Intake Total 1075.0 ml Balance 1075.0 ml Intake Oral 500 ml IV Total 575.0 ml # Voids 2 # Bowel Movements 1 Laboratory Tests 09/16/17 05:55: White Blood Count 6.9, Red Blood Count 3.11L, Hemoglobin 10.1L, Hematocrit 29.8L , Mean Corpuscular Volume 96, Mean Corpuscular Hemoglobin 32.6H, Mean Corpuscular Hemoglobin Concent 34.0, Red Cell Distribution Width 11.7, Platelet Count 194, Mean Platelet Volume 7.5, Neutrophils (%) (Auto) 63.7, Lymphocytes (% ) (Auto) 23.7, Monocytes (%) (Auto) 11.5H, Eosinophils (%) (Auto) 0.6, Basophils (%) (Auto) 0.5, Erythrocyte Sedimentation Rate 80H, Sodium Level 142, Potassium Level 3.5, Chloride Level 109H, Carbon Dioxide Level 24, Anion Gap 9, Blood Urea Nitrogen 6L, Creatinine 0.6, Estimat Glomerular Filtration Rate > 60 , Glucose Level 96, Calcium Level 8.6, Phosphorus Level 3.1, Magnesium Level 1.9 , Total Bilirubin 0.2, Aspartate Amino Transf (AST/SGOT) 8L, Alanine Aminotransferase (ALT/SGPT) 13, Alkaline Phosphatase 54, C-Reactive Protein, Quantitative 11.0H, Total Protein 6.0L, Albumin 2.6L, Globulin 3.4, Albumin/ Globulin Ratio 0.8L Height (Feet): 5 Height (Inches): 5.00 Weight (Pounds): 130 General Appearance: no apparent distress Cardiovascular: normal rate Abdomen: soft Moreno Reynolds M.D. Sep 16, 2017 19:48
[2017-09-16 20:02] VITALS: BP 103/63
[2017-09-17] VITALS: BP 117/71
[2017-09-17] MEDS: Aztreonam Inj 1 GM in NS 50 ML IVPB SCH ×2 (00:09→08:27)
[2017-09-17] MEDS: D5 1/2NS 1,000 ML IV SCH ×2 (00:10→13:20)
[2017-09-17 04:00] VITALS: BP 97/60
[2017-09-17 07:46] LABS: BASOPHILS % (AUTO) 0.5 % (0.0-2.0); EOSINOPHILS % (AUTO) 1.5 % (0.0-3.0); LYMPHOCYTES % (AUTO) 34.3 % (20.0-45.0); MEAN CORPUSCULAR HEMOGLOBIN 32.4 PG (27.0-31.0); MEAN CORPUSCULAR HGB CONC 34.6 G/DL (32.0-36.0); MEAN CORPUSCULAR VOLUME 94 FL (80-99); MEAN PLATELET VOLUME 7.1 FL (6.5-10.1); NEUTROPHILS % (AUTO) 52.8 % (45.0-75.0); PLATELET COUNT 229 K/UL (150-450); RED BLOOD COUNT 3.08 M/UL (4.20-5.40); RED CELL DISTRIBUTION WIDTH 11.7 % (11.6-14.8); WHITE BLOOD COUNT 5.2 K/UL (4.8-10.8)
--- NOTE | 2017-09-17 07:52 | Pulmonology Progress Note ---
Assessment/Plan Assessment/Plan ASSESSMENT Probably sepsis R pyelonephritis Recurrent pyelo/UTI Intractable R flank pain focal nephritis PLAN OF CARE MS floor IVF IV abx ID follows blood cx preliminary negative urine cx + sebastián Leukocytosis resolved, febrile at night CT A/P with evidence of focal nephritis as per urology notes urology consult appreciated No need for surgical interventions will need to have complete course of abx for 10-14 days as per ID recommendations, Pain management DVT prophylaxis a/emetic prn dc IV abx, 1 dose of Cipro now and observe - as per ID recommendations then cleared for dc home on oral Cipro for additional 10 days case discussed and evaluated by supervising physician Subjective Allergies: Coded Allergies: CEPHALEXIN (Verified Allergy, Mild, 09/13/17) Subjective feeling better afebrile, no leukocytosis Objective Last 24 Hour Vital Signs Date Time Temp Pulse Resp B/P (MAP) Pulse Ox O2 Delivery O2 Flow Rate FiO2 09/17/17 04:00 98.0 72 18 97/60 98 Room Air 09/17/17 00:00 99.5 86 18 117/71 98 Room Air 09/16/17 20:02 99.0 82 20 103/63 98 Room Air 09/16/17 16:00 99.1 82 20 110/68 100 Room Air 09/16/17 12:00 98.8 87 20 114/67 98 Room Air 09/16/17 11:44 98.8 09/16/17 08:00 98.8 79 20 105/56 98 Room Air General Appearance: WD/WN, no acute distress HEENT: normocephalic, atraumatic, anicteric, mucous membranes moist Respiratory/Chest: chest wall non-tender, lungs clear, normal breath sounds, no respiratory distress, no accessory muscle use Cardiovascular: normal peripheral pulses, normal rate, regular rhythm, no JVD Abdomen: normal bowel sounds, soft, non tender - no CVAT, non distended Genitourinary: normal external genitalia Extremities: no edema, pedal pulses normal 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, no motor/sensory deficits, alert, oriented x 3, responsive Laboratory Tests 09/17/17 06:50: White Blood Count 5.2, Red Blood Count 3.08L, Hemoglobin 10.0L, Hematocrit 28.9L , Mean Corpuscular Volume 94, Mean Corpuscular Hemoglobin 32.4H, Mean Corpuscular Hemoglobin Concent 34.6, Red Cell Distribution Width 11.7, Platelet Count 229, Mean Platelet Volume 7.1, Neutrophils (%) (Auto) 52.8, Lymphocytes (% ) (Auto) 34.3, Monocytes (%) (Auto) 11.0H, Eosinophils (%) (Auto) 1.5, Basophils (%) (Auto) 0.5, Sodium Level [Pending], Potassium Level [Pending], Chloride Level [Pending], Carbon Dioxide Level [Pending], Blood Urea Nitrogen [ Pending], Creatinine [Pending], Estimat Glomerular Filtration Rate [Pending], Glucose Level [Pending], Calcium Level [Pending], Phosphorus Level [Pending], Magnesium Level [Pending], Total Bilirubin [Pending], Aspartate Amino Transf ( AST/SGOT) [Pending], Alanine Aminotransferase (ALT/SGPT) [Pending], Alkaline Phosphatase [Pending], Total Protein [Pending], Albumin [Pending], Globulin [ Pending] Current Medications Medications (Trade) Dose Ordered Sig/Shi Route PRN Reason Start Time Stop Time Status Last Admin Dose Admin Acetaminophen (Tylenol) 650 mg Q4H PRN ORAL fever 09/13/17 15:30 10/13/17 15:29 09/16/17 00:07 Al Hydroxide/Mg Hydroxide (Mylanta II) 30 ml Q6H PRN ORAL dyspepsia 09/13/17 15:30 10/13/17 15:29 Aztreonam 1 gm/ Sodium Chloride 50 ml @ 100 mls/hr Q8H IVPB 09/14/17 09:00 09/21/17 08:59 09/17/17 00:09 Dextrose (Dextrose 50%) STAT PRN IV Hypoglycemia 09/13/17 15:30 10/13/17 15:29 Dextrose/Sodium Chloride 1,000 ml @ 75 mls/hr [id number] IV 09/13/17 16:00 10/13/17 15:59 09/17/17 00:10 Diphenhydramine HCl (Benadryl) 25 mg Q6H PRN ORAL Itching/Pruritis 09/13/17 15:30 10/13/17 15:29 Heparin Sodium (Porcine) (Heparin 5000 units/ml) 5,000 units EVERY 12 HOURS SUBQ 09/13/17 21:00 10/13/17 20:59 09/16/17 21:27 Ibuprofen (Advil) 400 mg Q4H PRN ORAL Mild Pain/Temp > 100.5 09/14/17 16:15 10/14/17 16:14 09/16/17 21:37 Morphine Sulfate (Morphine 5mg/ 2.5ml Oral Soln) 6 mg Q4H PRN ORAL MODERATE PAIN (4-6) 09/16/17 16:00 10/16/17 15:59 Morphine Sulfate (Morphine 5mg/ 2.5ml Oral Soln) 12 mg Q4H PRN ORAL SEVERE PAIN (7-10) 09/16/17 16:00 10/16/17 15:59 Nitroglycerin (Ntg) 0.4 mg Q5M X 3 DOSES PRN SL Prn Chest Pain 09/13/17 15:30 10/13/17 15:29 Ondansetron HCl (Zofran) 4 mg Q6H PRN IVP Nausea & Vomiting 09/13/17 15:30 10/13/17 15:29 Polyethylene Glycol (Miralax) 17 gm HSPRN PRN ORAL Constipation 09/13/17 15:30 10/13/17 15:29 Temazepam (Restoril) 15 mg HSPRN PRN ORAL Insomnia 09/13/17 15:30 09/20/17 15:29 09/17/17 00:09 Soha Tucker NP (Vanchtein) Sep 17, 2017 07:52
[2017-09-17 08:23] VITALS: BP 101/62
[2017-09-17] MEDS: Heparin 5000 units/ml inj SUBQ SCH (08:29)
[2017-09-17 08:32] LABS: ALANINE AMINOTRANSFERASE 14 U/L (12-78); ALBUMIN/GLOBULIN RATIO 0.7 (1.0-2.7); ANION GAP 10 mmol/L (5-15); ASPARTATE AMINO TRANSFERASE 11 U/L (15-37); CALCIUM 8.5 MG/DL (8.5-10.1); CARBON DIOXIDE 25 MMOL/L (21-32); CHLORIDE 108 MMOL/L (98-107); CREATININE 0.6 MG/DL (0.55-1.30); GLOMERULAR FILTRATION RATE > 60 mL/min (>60); MAGNESIUM 1.9 MG/DL (1.8-2.4); PHOSPHORUS 4.3 MG/DL (2.5-4.9); POTASSIUM 3.6 MMOL/L (3.5-5.1); SODIUM 142 MMOL/L (136-145); TOTAL PROTEIN 6.1 G/DL (6.4-8.2)
--- NOTE | 2017-09-17 10:30 | Infectious Diseases Prog Note ---
Assessment/Plan Assessment/Plan Abx: IV Vancomycin 09/14-09/15 IV Aztreonam 09/14- Levaquin x1 09/13 Assesment: R pyelonephritis -u/a wbc 5-10,nit neg, leuk +3; ucx 40-50k C. albicans, >100K lactobacillus ( not causing pyelonephritis, colonizers) -Bcx NTD -CT abd/p w/: Focal areas of low attenuation within the right kidney. Given stated clinical history, likely represent areas of focal nephritis. Infiltrative neoplasm as etiology of this finding also possible but much less likely. Mild ectasia of the renal pelvis and proximal ureter as well as minimal enhancement of the proximal ureter may indicate a component of pyelitis/ ureteritis as well No other acute or significant abnormality Fever/leukocytosis- 2ry to above- leukocytosis resolved, fever improving- r/o bacteremia -Bcx 09/14 NTD Hx of recurrent UTI and pyelonephritis Plan: -Switch IV Aztreonam #4/ to PO Cipro 750mg PO bid- first dose to be given now to monitor response to abx -No cx results to guide antibiotic treatment and patient with cephalosporin allergy. We are switching to PO Cipro; keeping in mind this can fail and patient should be given strict return recommendations. -s/p 2d IV Vancomycin 09/15 -Consider post-coital abx prophylaxis with either 1 single dose of Bactrim DS or Nitrofurantoin 50-100mg given her hx of recurrent UTIs/pyelo -Discussed with patient about outpatient allergy evaluation to re-evaluate cephalosporin allergic reaction -f/u cx -Monitor CBC/BMP, temperatures Thank you for this consultation. Will continue to follow along with you. Discussed with RN Subjective Allergies: Coded Allergies: CEPHALEXIN (Verified Allergy, Mild, 09/13/17) Subjective afebrile in >24hrs ucx + for Lila and lactobacillus leukocytosis resolved Bcx NTD pain improving, feeling better today Objective Vital Signs Last 24 Hour Vital Signs Date Time Temp Pulse Resp B/P (MAP) Pulse Ox O2 Delivery O2 Flow Rate FiO2 09/17/17 08:23 97.7 76 18 101/62 100 Room Air 09/17/17 04:00 98.0 72 18 97/60 98 Room Air 09/17/17 00:00 99.5 86 18 117/71 98 Room Air 09/16/17 20:02 99.0 82 20 103/63 98 Room Air 09/16/17 16:00 99.1 82 20 110/68 100 Room Air 09/16/17 12:00 98.8 87 20 114/67 98 Room Air 09/16/17 11:44 98.8 Height (Feet): 5 Height (Inches): 5.00 Weight (Pounds): 130 Objective General Appearance: WD/WN, no apparent distress HEENT: normocephalic, atraumatic, no oral lesions Respiratory/Chest: chest wall non-tender, lungs clear Cardiovascular/Chest: normal peripheral pulses, normal rate, no murmurs Abd: +R flank TTP, BS+, S+D, ND; +R CVAT Ext: no edema Skin: no rashes reviewed Laboratory Tests Test 09/17/17 06:50 White Blood Count 5.2 K/UL (4.8-10.8) Red Blood Count 3.08 M/UL (4.20-5.40) L Hemoglobin 10.0 G/DL (12.0-16.0) L Hematocrit 28.9 % (37.0-47.0) L Mean Corpuscular Volume 94 FL (80-99) Mean Corpuscular Hemoglobin 32.4 PG (27.0-31.0) H Mean Corpuscular Hemoglobin Concent 34.6 G/DL (32.0-36.0) Red Cell Distribution Width 11.7 % (11.6-14.8) Platelet Count 229 K/UL (150-450) Mean Platelet Volume 7.1 FL (6.5-10.1) Neutrophils (%) (Auto) 52.8 % (45.0-75.0) Lymphocytes (%) (Auto) 34.3 % (20.0-45.0) Monocytes (%) (Auto) 11.0 % (1.0-10.0) H Eosinophils (%) (Auto) 1.5 % (0.0-3.0) Basophils (%) (Auto) 0.5 % (0.0-2.0) Sodium Level 142 MMOL/L (136-145) Potassium Level 3.6 MMOL/L (3.5-5.1) Chloride Level 108 MMOL/L (98-107) H Carbon Dioxide Level 25 MMOL/L (21-32) Anion Gap 10 mmol/L (5-15) Blood Urea Nitrogen 3 mg/dL (7-18) L Creatinine 0.6 MG/DL (0.55-1.30) Estimat Glomerular Filtration Rate > 60 mL/min (>60) Glucose Level 85 MG/DL (74-106) Calcium Level 8.5 MG/DL (8.5-10.1) Phosphorus Level 4.3 MG/DL (2.5-4.9) Magnesium Level 1.9 MG/DL (1.8-2.4) Total Bilirubin 0.2 MG/DL (0.2-1.0) Aspartate Amino Transf (AST/SGOT) 11 U/L (15-37) L Alanine Aminotransferase (ALT/SGPT) 14 U/L (12-78) Alkaline Phosphatase 55 U/L (46-116) Total Protein 6.1 G/DL (6.4-8.2) L Albumin 2.6 G/DL (3.4-5.0) L Globulin 3.5 g/dL Albumin/Globulin Ratio 0.7 (1.0-2.7) L Current Medications Medications (Trade) Dose Ordered Sig/Shi Route PRN Reason Start Time Stop Time Status Last Admin Dose Admin Acetaminophen (Tylenol) 650 mg Q4H PRN ORAL fever 09/13/17 15:30 10/13/17 15:29 09/16/17 00:07 Al Hydroxide/Mg Hydroxide (Mylanta II) 30 ml Q6H PRN ORAL dyspepsia 09/13/17 15:30 10/13/17 15:29 Aztreonam 1 gm/ Sodium Chloride 50 ml @ 100 mls/hr Q8H IVPB 09/14/17 09:00 09/21/17 08:59 09/17/17 08:27 Dextrose (Dextrose 50%) STAT PRN IV Hypoglycemia 09/13/17 15:30 10/13/17 15:29 Dextrose/Sodium Chloride 1,000 ml @ 75 mls/hr [id number] IV 09/13/17 16:00 10/13/17 15:59 09/17/17 00:10 Diphenhydramine HCl (Benadryl) 25 mg Q6H PRN ORAL Itching/Pruritis 09/13/17 15:30 10/13/17 15:29 Heparin Sodium (Porcine) (Heparin 5000 units/ml) 5,000 units EVERY 12 HOURS SUBQ 09/13/17 21:00 10/13/17 20:59 09/17/17 08:29 Ibuprofen (Advil) 400 mg Q4H PRN ORAL Mild Pain/Temp > 100.5 09/14/17 16:15 10/14/17 16:14 09/16/17 21:37 Morphine Sulfate (Morphine 5mg/ 2.5ml Oral Soln) 6 mg Q4H PRN ORAL MODERATE PAIN (4-6) 09/16/17 16:00 10/16/17 15:59 Morphine Sulfate (Morphine 5mg/ 2.5ml Oral Soln) 12 mg Q4H PRN ORAL SEVERE PAIN (7-10) 09/16/17 16:00 10/16/17 15:59 Nitroglycerin (Ntg) 0.4 mg Q5M X 3 DOSES PRN SL Prn Chest Pain 09/13/17 15:30 10/13/17 15:29 Ondansetron HCl (Zofran) 4 mg Q6H PRN IVP Nausea & Vomiting 09/13/17 15:30 10/13/17 15:29 Polyethylene Glycol (Miralax) 17 gm HSPRN PRN ORAL Constipation 09/13/17 15:30 10/13/17 15:29 Temazepam (Restoril) 15 mg HSPRN PRN ORAL Insomnia 09/13/17 15:30 09/20/17 15:29 09/17/17 00:09 Haley Cifuentes M.D. Sep 17, 2017 10:30
[2017-09-17 12:04] VITALS: BP 111/75
[2017-09-17] MEDS ORDERED: CIPROFLOXACIN250 MG ORAL (12:18)
[2017-09-17] MEDS ORDERED: D5 1/2NS 1000ml IV ONE (15:31)
[2017-09-17] MEDS ORDERED: Tubing IV Secondary IV ONE (15:31)
--- NOTE | 2017-09-20 07:24 | Discharge Summary ---
Discharge Summary Hospital Course Date of Admission Sep 13, 2017 at 13:37 Date of Discharge Sep 17, 2017 at 15:32 Admitting Diagnosis intractable abdominal pain HPI Marie Zaragoza is a 31 year old female who was admitted on Sep 13, 2017 at 13:37 for Right Flank Pain Hospital Course dc summary #[id number] Discharge Medications New Medications: Ciprofloxacin* (Ciprofloxacin*) 250 Mg Tablet 750 MG ORAL EVERY 12 HOURS for 10 Days, #20 TAB Discharge Condition Upon Discharge: stable Discharge Disposition Patient was discharged to Home (01) Discharge Diagnoses: Garrett (Fredisjarett),Soha EDWARD Sep 20, 2017 07:24
--- NOTE | 2017-09-21 00:30 | Discharge Summary 2 SIG ---
DATE OF ADMISSION: 09/13/2017 DATE OF DISCHARGE: 09/17/2017 REASON FOR ADMISSION: 31-year-old female with history of recurrent UTI and pyelonephritis, presented with 2 days of right-sided flank pain. The pain was sharp, intermittent, associated with nausea, no vomiting, associated with fever and chills. No dysuria. No hematuria. No history of renal stones. Patient in monogamous relation with one partner. No abnormal vaginal discharge noted. No abnormal vaginal bleeding. CT of the abdomen and pelvis revealed focal right-sided nephritis. Levaquin was given in the emergency room since the patient was allergic to cephalosporin. test negative. White blood count -15.1. The patient with fever and leukocytosis, and was admitted for recurrent pyelonephritis, probable sepsis. HOSPITAL STAY: The patient was admitted to Med/Surg floor. The patient was started on IV fluids. ID consult was requested. The patient was started on antibiotics. Due to allergy to cephalexin, the patient was on aztreonam and then IV aztreonam was switched to oral Cipro. First dose was given in the hospital just to monitor the patient due to the allergy to other antibiotic, as per ID recommendations. The patient tolerated oral Cipro well and was discharged on oral Cipro to complete antibiotic course. Blood culture were negative. Urine culture revealed Lila and lactobacillus (colonized). Leukocytosis resolved. Urologist had seen and evaluated the patient. Per Urology, no need for surgical intervention. Recommended to complete the course of antibiotics for 10 to 14 days as per ID recommendations. Pain management was provided. pain was addressed and controlled. Antiemetic provided as needed. The patient was able to tolerate diet. No nausea. Prescription was provided for oral antibiotic. The patient was stable for discharge. ID recommended to consider postcoital antibiotic prophylaxis with either one single dose of Bactrim DS or nitrofurantoin 50 to 100 mg , given her history of recurrent UTI and pyelonephritis. The patient was stable for discharge. FINAL DIAGNOSES: 1. Probable sepsis. 2. Right pyelonephritis. 3. Recurrent pyelonephritis/urinary tract infection. 4. Intractable right flank pain. DISCHARGE MEDICATIONS: See medication reconciliation list. DISCHARGE INSTRUCTIONS: The patient was discharged home. Follow up with the primary medical doctor. Satish Gamble M.D. Soha RoachKaterina selby DR: Dawna JOB#: [id number] CC: MALACHI
== END 2017-09-17 15:32 | disposition home or self-care (01) | DRG 720 ==
LOC: EMR 13:06 → 4E 13:37 → EDBEDREQ 14:29
DX: A41.9 Sepsis, unspecified organism (principal); N12 Tubulo-interstitial nephritis, not specified as acute or chronic; Z87.440 Personal history of urinary (tract) infections
CPT/HCPCS: 36415; 74177; 80053; 80202; 81001; 81003; 81025; 82150; 83605; 83690; 83735; 84100; 85007; 85025; 85651; 85730; 86140; 87040; 87086; 99285; J2405; J8499